=== PATIENT | female | born 1975 | race Two or more races ===

== ENCOUNTER 2024-09-09 10:19 | Emergency (ER) | payer MEDICAID, SELFPAY ==
[2024-09-09] VITALS (8 sets, daily range): BP systolic 106–133; BP diastolic 63–76; PULSE 72–98; RESP 14–100; TEMP 36.6–36.8; O2SAT 97–100; BMI 29.2
--- NOTE | 2024-09-09 10:25 | PC.NURSE ---
PT CAME IN TO TRIAGE, PT BENT OVER ONTO COUNTER, SON SAID SHE PASSED OUT. WHEN TRIAGING PT, PULSE OX WAS APPLIED, PT STARTED AT 98% ON RA WENT UP TO 99% WITH HR MAINTAING AT 65BPM. SON THEN STATES SHE DID NOT PASS OUT BUT SHE LOOKED LIKE SHE WAS FIXING TO PASS OUT.
--- NOTE | 2024-09-09 11:11 | XR_ITS ---
Examination: PA lateral chest 2 views Technique: Upright PA lateral chest 2 views Date and time: September 09, 2024 11:44 AM Indications: Shortness of breath chest pain today Findings: Normal heart size. Lungs are clear. Osseous structures are intact. Impression: No active disease.
--- NOTE | 2024-09-09 11:11 | EKG_ITS ---
[facility] Test Date: 2024-09-09 Pat Name: FILIPE BENNETT Department: Room: - Gender: Female Courtroom Reporter: : 1975 Requested By: Kianna Valdes Order Number: [id number] Reading MD: Kianna Valdes Measurements Intervals [place] Rate: 89 P: 43 CO: 156 QRS: 55 QRSD: 89 T: 44 QT: 375 QTc: 458 Interpretive Statements SINUS RHYTHM WITH OCCASIONAL VENTRICULAR PREMATURE COMPLEXES No previous ECG available for comparison /store/S0/[id number]/[id number].pdf
--- NOTE | 2024-09-09 11:12 | PD.EDRME ---
Rapid Medical Screening Exam E Arrival date/time: 09/09/24 10:19 This is a 48-year-old female that comes into the emergency room with complaints of dizziness, weakness, shortness of breath and chest pain. Patient is currently being worked up by her documentation spec because she has these spells. Patient was recently give nitroglycerin and she states that she took nitroglycerin prior to arrival and it made her feel worse. I have greeted and performed a focused initial assessment of this patient. Initial appropriate labs ordered at this time. A comprehensive ED assessment and evaluation of the patient and analysis of all test and completion of medical decision making process will be conducted by additional ED provider. Chief Complaint: Shortness of Breath/Dyspnea Time Seen by Provider: 09/09/24 10:37 Vital signs: Vital Signs Temperature 98.0 F 09/09/24 10:52 Pulse Rate 98 09/09/24 10:52 Respiratory Rate 20 09/09/24 10:52 Blood Pressure 116/76 09/09/24 10:52 Pulse Oximetry (%) 100 09/09/24 10:52 Oxygen Delivery Method Room Air 09/09/24 10:52
[2024-09-09 11:53] LABS: Basophils % (Auto) 1 % (0-2.5); Eosinophils # (Auto) 0.2 Thou/mm3 (0.0-0.5); Eosinophils % (Auto) 3 % (0-10); Hematocrit 29.9 % (36.0-46.0); Hemoglobin 9.7 g/dL (12.0-16.0); Immature Granulocytes % (Auto) 1 % (0-0); Immature Granulocytes Auto 0.06 Thou/mm3 (0.00-0.00); Lymphocytes # (Auto) 1.1 Thou/mm3 (1.0-4.8); Lymphocytes % (Auto) 18 % (10-50); Mean Corpuscular HGB Conc 32.4 g/dl (31.0-37.0); Mean Corpuscular Hemoglobin 23.2 pg (25.0-35.0); Mean Corpuscular Volume 71 fL (80-100); Monocytes # (Auto) 0.6 Thou/mm3 (0.0-0.8); Monocytes % (Auto) 9 % (0-12); Neutrophils # (Auto) 4.2 Thou/mm3 (1.8-7.7); Neutrophils % (Auto) 69 % (37-80); Nucleated Red Blood Cell % 0 /100 WBC (0); Platelet Count 294 Thou/mm3 (140-440); RDW Standard Deviation 46.9 fL (36.4-46.3); Red Blood Count 4.19 Miln/mm3 (4.00-5.20); White Blood Count 6.1 Thou/mm3 (3.6-11.0)
[2024-09-09 11:59] LABS: B-Type Natriuretic Peptide < 20 pg/mL (0-100)
[2024-09-09 12:03] LABS: Alanine Aminotransferase 23 U/L (10-49); Albumin, Serum 4.2 gm/dL (3.5-5.0); Albumin/Globulin Ratio 2.2 (1.2-2.2); Alkaline Phosphatase 79 U/L (46-116); Anion Gap 8 (7-16); Aspartate Amino Transferase 18 U/L (0-34); BUN/Creatinine Ratio 13 Ratio (12-20); Bilirubin,Total 0.4 mg/dL (0.3-1.2); Blood Urea Nitrogen 8 mg/dL (9-23); Calcium 8.9 mg/dL (8.3-10.6); Calcium (Corrected) 8.9 mg/dL (8.5-10.1); Carbon Dioxide 23.6 mMol/L (20.0-31.0); Chloride 108 mMol/L (98-107); Creatinine (Component) 0.6 mg/dL (0.6-1.3); Globulin 1.9 gm/dL (2.3-3.5); Glucose 120 mg/dL (74-106); Osmolality,Calculated 278 (275-295); Potassium 4.2 mMol/L (3.4-5.1); Sodium 140 mMol/L (136-145); Total Protein 6.1 gm/dL (5.7-8.2); Troponin I 0.021 ng/mL (0.0-0.045); eGFR > 60 See Note
--- NOTE | 2024-09-09 13:51 | XR_ITS ---
Examination: AP chest single view Technique one AP portable semiupright chest single view Date and time: September 09, 2024 1403 hrs. Comparison: September 09, 2024 11:44 AM Indications: Coughing fever today. Findings: Normal heart size. Lungs are clear. The osseous structures are intact. Impression: No active disease.
--- NOTE | 2024-09-09 14:01 | PD.EDADULT ---
ED General RME/HPI General Chief complaint: Shortness of Breath/Dyspnea Stated complaint: SOB Time Seen by Provider: 09/09/24 10:37 Arrival date/time: 09/09/24 10:19 Limitations: no limitations RME / HPI RME / HPI narrative: 09/09/24 10:19 This is a 48-year-old female that comes into the emergency room with complaints of dizziness, weakness, shortness of breath and chest pain. Patient is currently being worked up by her vendor analyst because she has these spells. Patient was recently give nitroglycerin and she states that she took nitroglycerin prior to arrival and it made her feel worse. I have greeted and performed a focused initial assessment of this patient. Initial appropriate labs ordered at this time. A comprehensive ED assessment and evaluation of the patient and analysis of all test and completion of medical decision making process will be conducted by additional ED provider. DR. ENGLE MAIN ED EVALUATION: 48 year old female presents to the Emergency Department with complaints of the following dizziness, bilateral ear buzzing, generalized body weakness, body shakes, palpitations, shortness of breath, and a little chest pain. She states onset of symptoms right prior to arrival, about 10 AM. She states she was taking out the clothes out of the dryer when her symptoms started. She asked her son to bring her and on the way here, her shortness of breath worsened and chest felt tight; so patient took a nitroglycerine under the tongue, that prescribed by her vendor analyst a year ago. Denies any caffeine intake, stress, or other symptoms at this time. She states that she has very heavy periods and has anemia. Currently on her period now. Related Data Previous Rx's ?Medication ?Instructions ?Recorded lorazepam 0.5 mg tablet (Ativan) 0.5 mg PO TID PRN palpitations #20 09/09/24 tabs Allergies Allergy/AdvReac Type Severity Reaction Status Date / Time No Known Allergies Allergy Verified 09/09/24 10:22 Review of Systems Review of Systems Systems Reviewed: All systems reviewed, normal except as documented Past Medical History Social History SMOKING STATUS: Never smoker SUBSTANCE USE: does not use ALCOHOL: Never Past Medical History Comments PMH COMMENT: She states that she has very heavy periods and has anemia. ED Exam General Limitations: Present no limitations General appearance: Present alert, in no apparent distress and other (looks a little pale) Head Head exam: Present atraumatic, normocephalic and normal inspection Eye Eye exam: Present normal appearance, PERRL and EOMI ENT ENT exam: Present normal exam, normal oropharynx and mucous membranes moist Neck Neck exam: Present normal inspection, full ROM and trachea midline Chest Chest inspection: Present normal inspection and symmetric chest wall rise Respiratory Respiratory exam: Present normal lung sounds bilaterally Cardiovascular Cardiovascular exam: Present regular rate and normal rhythm (with occasional PVCs) Abdominal Exam Abdominal exam: Present soft and normal bowel sounds Extremities Exam Extremities exam: Present normal inspection and full ROM Back Exam Back exam: Present normal inspection and full ROM Neurological Exam Neurological exam: Present alert, oriented X3 and CN II-XII intact Psychiatric Psychiatric exam: Present normal affect and normal mood Skin Skin exam: Present warm, dry, intact and normal color Course Quality Measures none Orders Category Date Time Status [place] NOW Care 09/09/24 13:51 Active Continuous Pulse Oximetry NOW Care 09/09/24 13:51 Completed EKG (ED ONLY) *Do not use* NOW Care 09/09/24 11:11 Completed Insert IV NOW Care 09/09/24 13:51 Active EKG (ED Only) Stat Exams 09/09/24 11:11 Draft XR chest 1V portable Stat Exams 09/09/24 13:51 Completed XR chest 2V Stat Exams 09/09/24 11:11 Completed BNP [B-Type Natriuretic Peptide] Stat Lab 09/09/24 11:23 Completed CBC Stat Lab 09/09/24 11:23 Completed CBC Stat Lab 09/09/24 14:40 Completed Comprehensive Metabolic Panel Stat Lab 09/09/24 11:23 Completed Partial Thromboplastin Time Stat Lab 09/09/24 14:40 Completed Prothrombin Time with INR Stat Lab 09/09/24 14:40 Completed Troponin I Stat Lab 09/09/24 11:23 Completed Troponin I Stat Lab 09/09/24 14:40 Received Urinalysis Stat Lab 09/09/24 13:51 Ordered LORazepam [Ativan Inj] Med 09/09/24 14:03 Discontinued 0.5 mg IVP X1 ONE Sodium Chloride 0.9% 1000 ml [Ns] 1,000 ml Med 09/09/24 13:51 Active IV 100 mls/hr Oxygen Delivery NOW RT 09/09/24 13:51 Active Vital Signs Vital signs: Vital Signs Temperature 98.0 F 09/09/24 10:52 Pulse Rate 98 09/09/24 10:52 Respiratory Rate 20 09/09/24 10:52 Blood Pressure 116/76 09/09/24 10:52 Pulse Oximetry (%) 100 09/09/24 10:52 Oxygen Delivery Method Room Air 09/09/24 10:52 Discharge Plan Plan Patient Disposition: HOME (Self Care) Patient condition on transfer: Stable Prescriptions/Referrals Prescriptions/Med Rec: New lorazepam [Ativan] 0.5 mg tablet 0.5 mg PO TID MDD 3 PRN (Reason: palpitations) Qty: 20 0RF Referrals: No Primary/Family,Physician [Primary Care Provider] - In 1 week Problem List Clinical Impression: PVC's (premature ventricular contractions), History of anemia Patient/Caregiver Discharge Instructions Education Materials: PVCs Additional Instructions: Please follow-up with your primary care physician within 2-3 days, consider a holter monitor. Return to the Emergency Department as needed. Print Language: French Stand Alone Forms: Sho Award Info., Patient Portal Info Letter MDM Narrative [facility] hospital course: I, Arelis Montelongo am scribing for and in the presence of Dr. Engle. Labs are unremarkable. Plan to discharge the patient with PVC's and history of anemia. Patient to follow up with her primary care physician within 2-3 days, consider a holter monitor. Clinical Information Provided by patient Medical Records Reviewed [facility] Meds/Rx Considered, not Ordered None Labs/Rad/Tests considered, not Ordered None Chronic Illness/Social Conditions Add or document further as needed: She states that she has very heavy periods and has anemia. EKG EKG Interpretation narrative: My interpretation: EKG performed at 1116 hours, sinus rhythm, rate 89, no acute changes, ND interval 156 ms, QRS duration 89 ms, QT/QTc 375/422, P-R-T axis 43, 55, 44. Lab Interpretation Labs: see narrative above Imaging Radiology reports / interpretation(s): Procedure(s): XR chest 2V Accession Number(s): [id number] cc: Jose Francisco Crum MD; NO PRIMARY/FAMILY,PHYSICIAN; Kianna Valdes NP~ Examination: PA lateral chest 2 views Technique: Upright PA lateral chest 2 views Date and time: September 09, 2024 11:44 AM Indications: Shortness of breath chest pain today Findings: Normal heart size. Lungs are clear. Osseous structures are intact. Impression: No active disease. Dictated By: Jose Francisco Crum MD Procedure(s): XR chest 1V portable Accession Number(s): [id number] cc: Brennon Engle MD; Jose Francisco Crum MD; NO PRIMARY/FAMILY,PHYSICIAN~ Examination: AP chest single view Technique one AP portable semiupright chest single view Date and time: September 09, 2024 1403 hrs. Comparison: September 09, 2024 11:44 AM Indications: Coughing fever today. Findings: Normal heart size. Lungs are clear. The osseous structures are intact. Impression: No active disease. Dictated By: Jose Francisco Crum MD Medication Administration(s) Medication Administration History Sodium Chloride (Ns) 1,000 mls @ 100 mls/hr IV .Q10H ONE Stop: 09/09/24 23:50 Last Admin: 09/09/24 14:48 Dose: 100 mls/hr Documented By: CANDE Discontinued Medications Lorazepam (Lorazepam 2 Mg/Ml Vial) 0.5 mg IVP X1 ONE Stop: 09/09/24 14:04 Last Admin: 09/09/24 14:49 Dose: 0.5 mg Documented By: CANDE Diagnosis Differential diagnosis: anemia, dehydration, MS, anxiety Most likely dx, and/or detailed dx discussion: PVC's History of anemia Dispositon Disposition: Discharge Home
[2024-09-09] MEDS: SODIUM CHLORIDE 0.9% 1000 ML 1,000 ML 100 ML IV (14:48)
[2024-09-09] MEDS: LORazepam 2 MG/ML VIAL 0.5 MG IVP (14:49)
[2024-09-09 14:58] LABS: Basophils % (Auto) 1 % (0-2.5); Eosinophils # (Auto) 0.1 Thou/mm3 (0.0-0.5); Eosinophils % (Auto) 2 % (0-10); Hematocrit 29.7 % (36.0-46.0); Hemoglobin 9.8 g/dL (12.0-16.0); Immature Granulocytes % (Auto) 1 % (0-0); Immature Granulocytes Auto 0.05 Thou/mm3 (0.00-0.00); Lymphocytes # (Auto) 1.1 Thou/mm3 (1.0-4.8); Lymphocytes % (Auto) 19 % (10-50); Mean Corpuscular Hemoglobin 23.5 pg (25.0-35.0); Mean Corpuscular Volume 71 fL (80-100); Monocytes # (Auto) 0.4 Thou/mm3 (0.0-0.8); Monocytes % (Auto) 7 % (0-12); Neutrophils # (Auto) 4.1 Thou/mm3 (1.8-7.7); Neutrophils % (Auto) 71 % (37-80); Nucleated Red Blood Cell % 0 /100 WBC (0); Platelet Count 289 Thou/mm3 (140-440); RDW Standard Deviation 46.4 fL (36.4-46.3); Red Blood Count 4.17 Miln/mm3 (4.00-5.20); White Blood Count 5.7 Thou/mm3 (3.6-11.0)
[2024-09-09 15:07] LABS: INR 0.9 (0.9-1.3); Partial Thromboplastin Time 25.4 Seconds (22.0-36.0); Prothrombin Time 10.4 Seconds (9.0-12.2)
[2024-09-09 15:25] LABS: Troponin I 0.133 ng/mL (0.0-0.045)
--- NOTE | 2024-09-09 16:00 | EKG_ITS ---
[facility] Test Date: 2024-09-09 Pat Name: FILIPE BENNETT Department: Room: - Gender: Female Manager Animal: : 1975 Requested By: Brennon Hutchison Order Number: [id number] Reading MD: Brennon Hutchison Measurements Intervals [place] Rate: 71 P: 43 GA: 168 QRS: 50 QRSD: 89 T: 47 QT: 400 QTc: 436 Interpretive Statements SINUS RHYTHM LOW QRS VOLTAGE IN PRECORDIAL LEADS [QRS DEFLECTION < 1.0 mV IN CHEST LEADS] Compared to ECG 09/09/2024 11:16:29 Low QRS voltage now present Ventricular premature complex(es) no longer present /store/S0/[id number]/ecg/[id number].pdf
--- NOTE | 2024-09-09 16:05 | PD.EDADDENDU ---
Emergency Room Addendum Addendum Narrative: At time of discharge, about 1530 hours. It was noticed that there were 2 troponins ordered, one of them was elevated. At 1123 hours, troponin #1 was 0.021 and then there was another troponin at 1440 hours and that was elevated at 0.133. So, we cancelled the discharge and will repeat troponin and reevaluate. EKG #2: Dated 09/09/2024 at 1610 hours. Interpreted by me: sinus rhythm, rate 71, no acute changes, MD interval 168 ms, QRS duration 89 ms, QT/QTc 400/423, P-R-T axis 43, 50, 47 1700: I called the patient's credit control manager, Dr. Yrn Sanchez at . They will call back. 1750: We got more history from the patient. She states she is prediabetes, but no hypertension or cholesterol history. She states that prior to arrival she had chest palpitations and chest pressure that resolved upon taking nitro. Family history is significant for cardiac disease, father at age 45. Patient denies any tobacco, alcohol, or substance use. No current chest pain now. 1800: CARMELINA heart score of 3, moderate risk. But patient has a down trending trop. No current chest pain now. She will follow as an outpatient with her credit control manager and be discharged with palpitations, shortness of breath, and chest pain. Patient was told to follow with credit control manager tomorrow and take ASA daily.
[2024-09-09 16:19] LABS: Collection Type, Urine Clean Catch
[2024-09-09] MEDS: Aspirin 325 MG TABLET PO (16:34)
[2024-09-09] MEDS: NITROGLYCERIN OINT 2% 1 INCH PACKET TOP (16:34)
[2024-09-09 16:40] LABS: Bilirubin,Urine Negative (Negative); Blood,Urine Trace (Negative); Clarity,Urine Clear (Clear/Hazy); Color,Urine Lt-Yellow (Lt Yel-Yel); Glucose, Urine Negative (Negative); Ketones,Urine Negative (Negative); Leukocyte Esterase,Urine Negative (Negative); Nitrite,Urine Negative (Negative); PH,Urine 6.5 (5.0-7.0); Protein,Urine Negative (Neg - Trace); RBC,Urine 2 /hpf (0-3); Specific Gravity,Urine 1.019 (1.001-1.035); Squamous Epithelial Cell,Urine 1 /hpf (0-5); Urobilinogen,Urine Negative mg/dL (0.0-1.0); WBC,Urine 1 /hpf (0-5)
[2024-09-09 16:45] LABS: Troponin I 0.099 ng/mL (0.0-0.045)
== END 2024-09-09 18:50 | disposition home or self-care (01) ==
PROVIDERS: Nurse Practitioner Family; Emergency Provider Family Medicine
DX: I49.3 Ventricular premature depolarization (principal); D64.9 Anemia, unspecified
CPT/HCPCS: 36415; 71045; 71046; 80053; 81001; 83880; 84484; 85025; 85610; 85730; 93005; 96374; 99284; J2060; J7030; A9270

== ENCOUNTER 2024-09-24 08:45 | Emergency (ER) | payer MEDICAID, SELFPAY ==
[2024-09-24 08:57] VITALS: BP 118/81; PULSE 95; RESP 18; TEMP 37.1; O2SAT 99; BMI 31.4
--- NOTE | 2024-09-24 09:23 | XR_ITS ---
Examination: Lumbar spine 3 views Technique one AP lateral coned lateral lower lumbar spine 3 views Date and time: September 24, 2024, 1048 hours INDICATIONS: Lifting injury to the lower back one week ago followed by a lower back pain radiating down the right leg FINDINGS: Adequate alignment lumbar vertebral bodies Advanced disc narrowing L5-S1 No spondylolisthesis. IMPRESSION: Advanced degenerative disc disease L5-S1
--- NOTE | 2024-09-24 09:26 | PD.EDBACK ---
ED Back Injury Pain RME/HPI General Chief Complaint: Back Pain/Injury Stated Complaint: SCIATIC PAIN x 1 WEEK AND R SWOLLEN FOOT TODAY Time Seen by Provider: 09/24/24 09:23 Source: patient Arrival date/time: 09/24/24 08:45 Mode of arrival: wheelchair Limitations: no limitations RME / HPI MD Complaint: back pain, back injury and other (Lifting a small child's swimming pool causing low back pain today.) Onset (ago): hour(s) Relieving factors: none and immobilization Exacerbating factors: movement Associated symptoms: weakness and difficulty walking Related Data Previous Rx's ?Medication ?Instructions ?Recorded lorazepam 0.5 mg tablet (Ativan) 0.5 mg PO TID PRN palpitations #20 09/09/24 tabs cyclobenzaprine 10 mg tablet 10 mg PO TID #20 tabs 09/24/24 ibuprofen 800 mg tablet 800 mg PO Q8H PRN pain #30 tabs 09/24/24 Allergies Allergy/AdvReac Type Severity Reaction Status Date / Time No Known Allergies Allergy Verified 09/24/24 08:50 Review of Systems Constitutional Constitutional: Reports system reviewed and no additional complaints, except as documented Eyes Eyes: Reports system reviewed and no additional complaints, except as documented, Denies dry eyes, Denies exophthalmos and Reports floaters Cardiovascular Cardiovascular: Denies chest pain with activity and Denies claudication ED Exam Narrative Physical exam: Straight leg raises are negative for radiculopathy on the left positive for radiculopathy on the right. DTRs are 2+ left and right. Patient is guarding as she ambulates. General Limitations: Present no limitations General appearance: Present alert and in no apparent distress Head Head exam: Present atraumatic Eye Eye exam: Present normal appearance and EOMI Neck Neck exam: Present normal inspection, full ROM and trachea midline Chest Chest inspection: Present normal inspection and symmetric chest wall rise Extremities Exam Extremities exam: Present normal inspection and full ROM Back Exam Back exam: Present normal inspection and full ROM Neurological Exam Neurological exam: Present alert and oriented X3 Psychiatric Psychiatric exam: Present normal affect and normal mood Skin Skin exam: Present warm, dry, intact and normal color Course Course Course Narrative: Patient will have a 3 view x-ray of her lumbar spine and 1 [place] for her pain. Quality Measures none (NA) Orders Category Date Time Status XR lumbar spine 2-3V Stat Exams 09/24/24 09:23 Completed HCG Qualitative,Urine Stat Lab 09/24/24 10:15 Completed HYDROcodone/APAP 10/325 [[place] 10/325] Med 09/24/24 09:23 Discontinued 1 tab PO X1 ONE DONE Vital Signs Vital signs: Vital Signs Temperature 98.8 F 09/24/24 08:57 Pulse Rate 95 09/24/24 08:57 Respiratory Rate 18 09/24/24 08:57 Blood Pressure 118/81 09/24/24 08:57 Pulse Oximetry (%) 99 09/24/24 08:57 Oxygen Delivery Method Room Air 09/24/24 08:57 Pulse ox is 99% room air Back Pain / Injury Patient data External records reviewed:: Other (specify) (DONE) Clinical information provided by:: none (DONE) Social determinants that could affect healthcare access:: none (DONE) Patient has the following chronic illnesses:: NA How is presenting disease/condition affected by chronic disease/condition?: no chronic disease (No chronic disease) Evaluation data The following diagnostics were reviewed and interpreted by me:: other (specify) (NA) Lab and/or radiology exams considered but not ordered:: NA Interpretation Summary: NA Medications / Prescriptions Medications or Prescriptions considered but not ordered:: NA Medication administrations:: Medication Administration History Discontinued Medications Hydrocodone Bitart/Acetaminophen (Hydrocodone/Apap 10/325 Tab) 1 tab PO X1 ONE Stop: 09/24/24 09:24 Last Admin: 09/24/24 09:28 Dose: 1 tab Documented By: ARF NA Consultations Consultation(s) initiated? (list below): No Consultation #1 (Physician, Specialty, Details): NA Diagnosis Differential diagnosis back pain/injury: sciatica, strain of lumbar region and renal colic Most likely diagnosis given after review of the tests above:: NA Admission Indicated Admission indicated?: not indicated Admission Request Was there a request for admission?: No Disposition Plan Disposition Plan: Discharge Discharge Attestation Discharge Attestation: The patient and all family members were given an opportunity to ask questions and understood the discharge instructions. Discharge instructions specifically effects, indications for sooner follow up or return to the emergency department, and the expected course of current diagnosis. Patient condition: Stable Discharge Plan Plan Patient Disposition: HOME (Self Care) Discharge Disposition comment: Discharge in no apparent distress Patient condition on transfer: Stable Prescriptions/Referrals Prescriptions/Med Rec: New cyclobenzaprine 10 mg tablet 10 mg PO TID Qty: 20 0RF ibuprofen 800 mg tablet 800 mg PO Q8H PRN (Reason: pain) Qty: 30 0RF No Action lorazepam [Ativan] 0.5 mg tablet 0.5 mg PO TID MDD 3 PRN (Reason: palpitations) Qty: 20 0RF Referrals: No Primary/Family,Physician [Primary Care Provider] - In 1 week Problem List Clinical Impression: Strain of lumbar region, Lumbar radiculopathy Patient/Caregiver Discharge Instructions Discharge Activity: activity as tolerated Print Language: Chinese Stand Alone Forms: Sho Award Info., Patient Portal Info Letter
[2024-09-24 10:36] LABS: HCG Qualitative,Urine Negative
[2024-09-24 12:30] VITALS: BP 115/73; PULSE 78; RESP 19; TEMP 36.9; O2SAT 78
[2024-09-24] MEDS: KETOROLAC INJ 60 MG/2 ML VIAL 30 MG IM (12:43)
[2024-09-24 13:15] VITALS: BP 117/79; PULSE 74; RESP 17; O2SAT 98
== END 2024-09-24 13:44 | disposition home or self-care (01) ==
PROVIDERS: Emergency Provider Physician Assistant
DX: S39.012A Strain of muscle, fascia and tendon of lower back, initial encounter (principal); X50.9XXA Other and unspecified overexertion or strenuous movements or postures, initial encounter
CPT/HCPCS: 72100; 81025; 99283; J1885; A9270